=== PATIENT | male | born 1965 | race Caucasian/White ===

== ENCOUNTER 2017-02-02 07:49 | Outpatient (CLI) | payer BC ==
[2017-02-02 13:02] LABS: BASOPHILS # (AUTO) 0.1 10^3/uL (0.0-0.1); BASOPHILS % (AUTO) 0.9 %; EOSINOPHILS # (AUTO) 0.2 10^3/uL (0.0-0.7); EOSINOPHILS % (AUTO) 2.2 %; HCT - HEMATOCRIT 48.4 % (42.0-52.0); HGB - HEMOGLOBIN 15.9 g/dL (14.0-18.0); LYMPHOCYTES # (AUTO) 2.8 10^3/uL (1.5-3.5); LYMPHOCYTES % (AUTO) 30.1 %; MEAN CORPUSCULAR HEMOGLOBIN 28.8 pg (27.0-31.0); MEAN CORPUSCULAR HGB CONC 32.8 g/dL (32.0-36.0); MEAN CORPUSCULAR VOLUME 87.7 fL (80.0-94.0); MEAN PLATELET VOLUME 8.3 fL (7.4-11.4); MONOCYTES # (AUTO) 0.9 10^3/uL (0.0-1.0); NEUTROPHILS # (AUTO) 5.2 10^3/uL (1.5-6.6); NEUTROPHILS % (AUTO) 56.8 %; NUCLEATED RED BLOOD CELLS AUTO 0.1 /100WBC; RED BLOOD COUNT 5.51 10^6/uL (4.70-6.10); RED CELL DISTRIBUTION WIDTH 14.8 % (12.0-15.0); UNCORRECTED WHITE BLOOD COUNT 9.2 x10^3/uL; WHITE BLOOD COUNT 9.2 x10^3/uL (4.8-10.8)
[2017-02-02 13:29] LABS: ALBUMIN/GLOBULIN RATIO 1.6 (1.0-2.2); BILIRUBIN,TOTAL 0.3 mg/dL (0.2-1.0); BUN - BLOOD UREA NITROGEN 20 mg/dL (6-20); CALCIUM 9.4 mg/dL (8.5-10.3); CARBON DIOXIDE - CO2 26 mmol/L (21-32); CHLORIDE 107 mmol/L (101-111); CHOL/HDL RATIO 4.1 (<5.0); CHOLESTEROL 200 mg/dL; CREATININE 0.9 mg/dL (0.6-1.2); GFR - MDRD 89 (>89); GLUCOSE 96 mg/dL (70-100); HDL CHOLESTEROL 49 mg/dL; LDL/HDL RATIO 2.7 (<3.6); POTASSIUM 4.5 mmol/L (3.5-5.0); SODIUM 140 mmol/L (135-145); TOTAL PROTEIN 6.8 g/dL (6.7-8.2); TRIGLYCERIDES 92 mg/dL; VLDL CHOLESTEROL 18 mg/dL
== END 2017-02-02 07:50 | disposition home or self-care (01) ==
LOC: LAB.N 07:49
PROVIDERS: ATTEND Nurse Practitioner Gerontology
DX: Z13.9 Encounter for screening, unspecified (principal)
CPT/HCPCS: 36415; 80053; 80061; 85025

== ENCOUNTER 2018-11-16 17:10 | Outpatient (CLI) | payer OTHER ==
--- NOTE | 2018-11-17 11:38 | Ultrasound Report ---
Reason: INGUINAL PAIN, RIGHT Procedure Date: 11/16/2018 Accession Number: [id number] / [id number] Procedure: US - Pelvic Limited or F/U CPT Code: FULL RESULT: EXAM: Limited INGUINAL ultrasound EXAM DATE: 11/16/2018 06:40 PM. CLINICAL HISTORY: INGUINAL PAIN, RIGHT. COMPARISON: None. TECHNIQUE: Real-time scanning was performed of the right inguinal region with static images obtained. Images were obtained with and without Valsalva maneuver. FINDINGS: There is a small 6 mm defect in the soft tissue planes at the site indicated as painful by the patient which demonstrates reducible protrusion of inguinal canal content ventrally, no bowel signature is identified. Other: None. IMPRESSION: Small narrow-necked likely fat-containing reducible hernia at the area indicated as painful by the patient. RADIA
--- NOTE | 2018-11-17 13:28 | Ultrasound Report ---
Reason: INGUINAL PAIN, RIGHT Procedure Date: 11/16/2018 Accession Number: [id number] / [id number] Procedure: US - Testicle CPT Code: FULL RESULT: EXAM: SCROTAL ULTRASOUND EXAM DATE: 11/16/2018 05:58 PM. CLINICAL HISTORY: Inguinal pain, right. COMPARISON: None. TECHNIQUE: Real-time scanning was performed with static images obtained. Color-flow images were utilized. FINDINGS: Right: Testis: 3.3 x 2.0 x 2.7 cm. Normal size and echotexture. No mass, calcification, or abnormal blood flow. Epididymis: 0.9 x 0.8 x 1.2 cm. Normal size and echotexture. No mass or abnormal blood flow. Hydrocele: Small hydrocele is noted. Varicocele: While veins are prominent, they do not measure greater than 3 mm with Valsalva. Left: Testis: 3.5 x 2.3 x 1.7 cm. Normal size and echotexture. Prominentrete tesis are incidentally noted, felt to be unlikely to be clinically relevant. No solid mass, calcification, or abnormal blood flow. Epididymis: 0.9 x 0.8 x 1.2 cm. Normal size and echotexture. No mass or abnormal blood flow. Hydrocele: None. Varicocele: Prominent veins which do not measure greater than 3 mm. IMPRESSION: Small right hydrocele. Prominent veins without definite varicocele by criteria. RADIA
== END 2018-11-16 17:11 | disposition home or self-care (01) ==
LOC: DI 17:10
PROVIDERS: ATTEND Physician Assistant Medical
DX: R10.31 Right lower quadrant pain (principal); K40.90 Unilateral inguinal hernia, without obstruction or gangrene, not specified as recurrent; N43.3 Hydrocele, unspecified
CPT/HCPCS: 76857; 76870

== ENCOUNTER 2018-11-21 12:51 | Emergency (ER) | payer OTHER ==
[2018-11-21] MEDS ORDERED: HYDROcod/ACETAM 5/325 MG TABLET PO STA (13:26)
--- NOTE | 2018-11-21 13:29 | ED Physician Documentation ---
History of Present Illness - Stated complaint Stated Complaint: BACK PX,GROIN,MALE - Chief complaint Chief Complaint: Back Pain - History obtained from History obtained from: Patient - History of Present Illness Timing: How many weeks ago (several weeks) Pain level max: 6 Pain level now: 5 - Additonal information Additional information: 53-year-old male presents to the emergency department with right lower back pain for the past 3 to 4 weeks. Worse with movement and better with rest. He also states that he is having pain at his prior right inguinal hernia that was repaired several years ago. Has seen his doctor for both of these issues. Placed on anti-inflammatories and Robaxin. States that his back is somewhat improved but still hurting. He is also concerned that the hernia is still hurting. Had a recent ultrasound. States also has occasional right testicular pain. No dysuria. No hematuria. No fever. No nausea or vomiting. Denies any trauma. No loss of bowel or bladder control. No numbness or tingling. Does not use IV drugs Review of Systems Ten Systems: 10 systems reviewed and negative Constitutional: denies: Fever, Chills Respiratory: denies: Cough GI: denies: Nausea, Vomiting, Diarrhea, Hematemesis, Bloody / black stool : denies: Dysuria, Frequency, Hesitancy, Unable to Void, Incontinent, Hematuria Skin: denies: Rash Musculoskeletal: denies: Neck pain Neurologic: denies: Numbness PD PAST MEDICAL HISTORY - Past Medical History Cardiovascular: None Respiratory: None Endocrine/Autoimmune: None GI: GERD : None HEENT: None Psych: None Musculoskeletal: Chronic back pain Derm: Other - Past Surgical History Past Surgical History: Yes General: Other - Present Medications Home Medications: Ambulatory Orders Medication Instructions Recorded Confirmed Cyclobenzaprine [Flexeril] 10 mg PO TID PRN 03/27/13 03/27/13 HYDROcod/ACETAM 5/325 [Vicodin 1 each PO 03/27/13 03/27/13 5/325] Omeprazole 20 mg PO DAILY 03/27/13 03/27/13 Fluconazole 150 mg PO ONCE #1 tablet 08/16/15 Meloxicam 15 mg 08/16/15 Nystatin 5 ml PO 5XD 14 Days ml 08/16/15 Cyclobenzaprine [Flexeril] 10 mg PO TID PRN #20 tablet 11/21/18 Hydrocodone/Acetaminophen 1 - 2 each PO Q6H PRN #14 tablet 11/21/18 [Hydrocodon-Acetaminophen 5-325] Meloxicam [Mobic] 15 mg PO DAILY PRN #20 tablet 11/21/18 - Allergies Allergies/Adverse Reactions: Allergies Allergy/AdvReac Type Severity Reaction Status Date / Time No Known Drug Allergies Allergy Verified 11/21/18 12:57 - Social History Does the pt smoke?: Yes Smoking Status: Current some day smoker Does the pt drink ETOH?: Yes Does the pt have substance abuse?: No - Immunizations Immunizations are current?: Yes - POLST Patient has POLST: No PD ED PE NORMAL - Vitals Vital signs reviewed: Yes - General General: Alert and oriented X 3, No acute distress, Well developed/nourished - HEENT HEENT: PERRL, Moist mucous membranes - Neck Neck: Supple, no meningeal sign - Cardiac Cardiac: RRR, Strong equal pulses - Respiratory Respiratory: No respiratory distress, Clear bilaterally - Abdomen Abdomen: Soft, Non tender, Non distended - Back Back: No spinal TTP, Other (No midline tenderness to palpation. No step-off or deformity. Mild paraspinal spasm to the right low lumbar.) - Derm Derm: Warm and dry - Extremities Extremities: Other (Normal bilateral lower extremity patellar and ankle jerk reflexes. Normal great toe extension bilaterally. no saddle anesthesia) - Neuro Neuro: Alert and oriented X 3 - Psych Psych: Normal mood, Normal affect - Free text exam Free text exam: Mild tenderness over the right inguinal hernia site. No swelling. No skin changes. Results - Vitals Vitals: Vital Signs - 24 hr 11/21/18 11/21/18 12:54 15:16 Temperature 36.4 C L Heart Rate 89 74 Respiratory 19 19 Rate Blood Pressure 147/99 H 149/70 H O2 Saturation 97 99 Oxygen O2 Source Room air - Labs Labs: Laboratory Tests 11/21/18 13:54 Urine Color DARK YELLOW Urine Clarity CLEAR Urine pH 5.5 Ur Specific [place] >=1.030 H Urine Protein NEGATIVE Urine Glucose (UA) NEGATIVE Urine Ketones NEGATIVE Urine Occult Blood NEGATIVE Urine Nitrite NEGATIVE Urine Bilirubin NEGATIVE Urine Urobilinogen 0.2 (NORMAL) Ur Leukocyte Esterase NEGATIVE Ur Microscopic Review NOT INDICATED Urine Culture Comments NOT INDICATED PD MEDICAL DECISION MAKING - ED course Complexity details: reviewed results, re-evaluated patient, considered differential (No cauda equina, no spinal epidural abscess, no fracture, no aortic dissection or evidence of aneursym rupture, Ureteral stone), d/w patient ED course: 53-year-old male with what appears to be a right lower lumbar spasm. He also does have a small inguinal hernia on ultrasound, fat-containing. This study from a few days ago was reviewed today. Also has a small hydrocele on outpatient ultrasound. These findings were shared with the patient. He is well-appearing, nontoxic. Afebrile. No vomiting. Pain well controlled. Ambulating without difficulty. Will follow-up with his PCP for further care. Patient counseled regarding signs and symptoms for which I believe and urgent re-evaluation would be necessary. Patient with good understanding of and agreement to plan and is comfortable going home at this time This document was made in part using voice recognition software. While efforts are made to proofread this document, sound alike and grammatical errors may occur. Departure - Departure Disposition: 01 Home, Self Care Clinical Impression: Back spasm Inguinal hernia Qualifiers: Obstruction and gangrene presence: without obstruction or gangrene Laterality: unilateral Recurrence: recurrent Qualified Code(s): K40.91 - Unilateral inguinal hernia, without obstruction or gangrene, recurrent Hydrocele Qualifiers: Hydrocele type: unspecified Qualified Code(s): N43.3 - Hydrocele, unspecified Condition: Good Instructions: ED Low Back Pain Injury, ED Hernia Inguinal Follow-Up: Nickie Morrison, OPERATIONAL ASSISTANT [Primary Care Provider] - Within 1 week Prescriptions: Cyclobenzaprine [Flexeril] 10 mg PO TID PRN #20 tablet PRN Reason: Spasms Hydrocodone/Acetaminophen [Hydrocodon-Acetaminophen 5-325] 1 - 2 each PO Q6H PRN #14 tablet PRN Reason: pain Meloxicam [Mobic] 15 mg PO DAILY PRN #20 tablet PRN Reason: pain Comments: Use the medications as prescribed. Follow-up with your doctor for further care. Return if you worsen. Return especially for fevers, numbness, loss of bowel or bladder control. Do not drink alcohol or drive while on narcotic pain medicine. Note that many narcotic pain relievers also contain tylenol/acetaminophen. Please ensure that your total dose of acetaminophen from all sources does not exceed 3 grams (3000mg) per day. You may constipated on this medication, take a stool softener such as "Colace" twice a day while you are on it. Also recommend a [id number] laxative such as senna or MiraLAX any day that you do not have a bowel movement. If you received narcotic pain medication in the emergency department, do not drive or operate machinery for the next 24 hours. Discharge Date/Time: 11/21/18 15:16
[2018-11-21 14:04] LABS: GLUCOSE, URINE (UA) NEGATIVE (NEGATIVE); KETONES,URINE (UA) NEGATIVE (NEGATIVE); LEUKOCYTE ESTERASE, URINE NEGATIVE (NEGATIVE); NITRITE,URINE NEGATIVE (NEGATIVE); OCCULT BLOOD,URINE NEGATIVE (NEGATIVE); PH,URINE 5.5 PH (5.0-7.5); PROTEIN,URINE NEGATIVE (NEGATIVE); UROBILINOGEN,URINE 0.2 (NORMAL) E.U./dL (NORMAL)
[2018-11-21 14:09] LABS: CLARITY,URINE CLEAR (CLEAR)
[2018-11-21 14:13] LABS: BILIRUBIN,URINE NEGATIVE (NEGATIVE); ICTOTEST,URINE NEGATIVE
[2018-11-21 15:17] VITALS: BP 149/70
== END 2018-11-21 15:16 | disposition home or self-care (01) ==
LOC: ED 12:51
DX: M62.830 Muscle spasm of back (principal); K40.91 Unilateral inguinal hernia, without obstruction or gangrene, recurrent; N43.3 Hydrocele, unspecified; F17.200 Nicotine dependence, unspecified, uncomplicated
CPT/HCPCS: 81003; 99283; 99284; A9270; 81001; 87086